=== PATIENT | female | born 1945 | race American Indian/Alaskan Native ===

== ENCOUNTER 2019-08-26 07:50 | Outpatient (CLI) | payer MEDICARE ==
--- NOTE | 2019-08-26 10:09 | Magnetic Resonance Report ---
MRI of the abdomen and pelvis without contrast INDICATION: Pelvic prolapse, vaginal enterocele TECHNIQUE: Axial coronal and sagittal imaging is performed through the pelvis and axial and coronal imaging is p erformed through the abdomen using multiple different imaging sequences. FINDINGS: There is prolapse of the urinary bladder. The bladder is distended. I do not see rectal prolapse. I d o not see an enterocele. There is a cystic structure in the left adnexa adjacent to the superior aspect of the bladder which m easures approximately 5 cm in diameter. I do not see definite communication with the urinary bladder though it is immediately adjacent to it. This could represent a bladder diverticulum. This could repr esent an adnexal cyst. There is mild bilateral hydroureteronephrosis which may be due to the bladder distention. It is possi ble that the obstruction as a result of the prolapse and compression of the distal ureters as a resul t. No adenopathy or mass lesions are seen. Liver, spleen, pancreas, and adrenal glands show no acute abnormality. IMPRESSION: There is a cystocele. No enterocele is seen. No rectal prolapse is seen. There is a 5 cm cystic structure in the left adnexa immediately adjacent to the distended urinary jacque dder. I suspect this is an adnexal cyst. It is possible this could be a bladder diverticulum but I do not see definite communication with the urinary bladder. There is mild bilateral hydroureteronephrosis caused by either bladder distention or compression of t he distal ureters secondary to prolapse. Signer Name: Jonathan Mata MD Signed: 08/26/2019 10:05 AM Workstation Name: [id number]
== END 2019-08-26 07:51 | disposition home or self-care (01) ==
LOC: MRI 07:50
PROVIDERS: ATTEND Urology
DX: N81.10 Cystocele, unspecified (principal); N13.30 Unspecified hydronephrosis
CPT/HCPCS: 72195; 74181